=== PATIENT | female | born 1995 | race American Indian/Alaskan Native ===

== ENCOUNTER 2018-07-20 07:30 | Day surgery (SDC) | payer MEDICAID ==
--- NOTE | 2018-07-19 04:04 | History and Physical Report ---
History of Present Illness Date of examination: 07/16/18 Date of admission: 07/20/2018 Chief complaint: sterilization History of present illness: Visit Type: Pre-Op CC: pre op. History of Present Illness: pt presents for Pre op LTL....marion Pt desires btl. All risk/benefits/alternatives were d/w pt and questions were addressed and answered. Consents were signed and placed on the chart. Stressed to pt her age and riks of regret. She expressed understanding stating she has 3 children and is aware of the risk but strongly desires to have procedure done. Methods were d/w pt and she desires to have bilateral salpingectomy. Vital Signs: Patient Profile: 23 Years Old Female Height: 62 inches Weight: 110 pounds BMI: 20.12 BP sittin / 60 (left arm) Current Method of Contraception: None Date of Last Pap Smear: 01/27/2018 Past History : 3 Term Births: 3 Premature Births: 0 Living Children: 3 Para: 2 Mult. Births: 0 Prev : 0 Aborta: 0 Elect. Ab: 0 Spont. Ab: 0 Ectopics: 0 # 1 Delivery date: 2012 Weeks Gestation: 40 weeks labor: no Delivery type: Hours of labor: 12 Anesthesia type: epidural Delivery location: [place] Sex: Female weight: 5#6 # 2 Delivery date: 2016 Weeks Gestation: 40 labor: no Delivery type: Hours of labor: 11 Anesthesia type: epidural Delivery location: [place] Sex: Male weight: 6#5 # 3 Delivery date: 05/30/2018 Weeks Gestation: 39.5 Delivery type: Vaginal Anesthesia type: epidural Delivery location: [facility] Infant Sex: female weight: 7.38 Comments: none QA TEST LEAD History Operations: hernia repair Abnormal PAP: negative Infection History HIV Risk Eval: no Personal hx. of genital herpes: no Partner hx. of genital herpes: no Hx of STD: none Current Allergies (reviewed today): No known allergies Past Medical History: Reviewed history from 02/25/2018 and no changes required: Anemia Past Surgical History: Reviewed history from 02/25/2018 and no changes required: hernia repair [--[facility]] Risk Factors: Smoked Tobacco Use: Never smoker Smokeless Tobacco Use: Never Drug use: no HIV high-risk behavior: no Seatbelt use: 100 % PAP Smear History: Date of Last PAP Smear: 01/27/2018 Past History Past Medical History: other (anemia) Past Surgical History: other (hernia repair) QA TEST LEAD History: denies: abnormal PAP smear - Obstetrical History : 3 Para: 3 Hx # Term Pregnancies: 3 Number of Living Children: 3 Medications and Allergies Allergies Allergy/AdvReac Type Severity Reaction Status Date / Time No Known Allergies Allergy Verified 07/16/18 16:51 Home Medications Medication Instructions Recorded Confirmed Last Taken Type No Known Home Medications [No 07/16/18 07/16/18 Unknown History Reported Home Medications] Review of Systems All systems: negative - Physical Exam Cardiovascular: Normal S1, Normal S2 Lungs: Positive: Clear to auscultation, Normal air movement Abdomen: Positive: normal appearance, soft. Negative: distention, tenderness, guarding Genitourinary (Female): Positive: other (deferred until EUA) Results All other labs normal. Assessment and Plan - Patient Problems (1) Encounter for sterilization Status: Acute Plan to address problem: -all risk, benefits,and alternatives were d/w pt and questions were addressed and answered -consent signed and placed on the chart.
[~2018-07-20 07:30] MED LIST: ANCEF/STERILE WATER 2 GM/20 ML 2 GM/20 ML SYRINGE IV NR
[2018-07-20] MEDS ORDERED: MARCAINE 0.5% INFILTRATI ONE (07:56)
[2018-07-20] MEDS ORDERED: VERSED IV NR (08:28)
[2018-07-20 08:53] LABS: Hematocrit 39.9 % (30.3-42.9); Hemoglobin 13.2 gm/dl (10.1-14.3); Mean Corpuscular HGB Conc 33 % (30-34); Mean Corpuscular Volume 89 fl (79-97); Platelet Count 313 K/mm3 (140-440); Red Blood Count 4.46 M/mm3 (3.65-5.03); Red Cell Distribution Width 14.7 % (13.2-15.2)
[2018-07-20] MEDS ORDERED: LACTATED RINGERS 1,000 ML IV SCH (09:00)
[2018-07-20] MEDS ORDERED: ZEMURON IV ONE (09:12)
[2018-07-20] MEDS ORDERED: DIPRIVAN 10 MG/ML IV ONE (09:12)
[2018-07-20] MEDS ORDERED: DILAUDID ONE (09:12)
[2018-07-20] MEDS ORDERED: XYLOCAINE MPF 2% ONE (09:12)
--- NOTE | 2018-07-20 09:41 | Anesthesia Consultation ---
Anesthesia Consult and Med Hx Date of service: 07/20/18 - Airway Anesthetic Teeth Evaluation: Good ROM Head & Neck: Adequate Mental/Hyoid Distance: Adequate Mallampati Class: Class II Intubation Access Assessment: Probably Good - Pulmonary Exam CTA: Yes - Cardiac Exam Cardiac Exam: RRR - Pre-Operative Health Status ASA Pre-Surgery Classification: ASA2 Proposed Anesthetic Plan: General - Pulmonary Hx Smoking: Yes (< 1 black and mild per day) Hx Asthma: No Hx Respiratory Symptoms: No (no recent cough or flu symptoms) - Cardiovascular System Hx Hypertension: No Hx Heart Attack/AMI: No - Central Nervous System Hx Seizures: No CVA: No - Gastrointestinal Hx Gastroesophageal Reflux Disease: No - Endocrine Hx Renal Disease: No Hx Liver Disease: No Hx Insulin Dependent Diabetes: No Hx Non-Insulin Dependent Diabetes: No Hx Thyroid Disease: No - Other Systems Hx Obesity: No - Additional Comments Anesthesia Medical History Comments: No hx anesthesia complications.
[2018-07-20] MEDS ORDERED: DILAUDID IV PRN (09:42)
--- NOTE | 2018-07-20 09:42 | Anesthesia Day of Surgery ---
Anesthesia Day of Surgery - Day of Surgery Patient Examined: Yes Patient H&P Reviewed: Yes Patient is NPO: Yes
[2018-07-20] MEDS ORDERED: NACL 0.9% IR ONE (10:59)
[2018-07-20] MEDS ORDERED: BLOXIVERZ ONE (11:07)
[2018-07-20] MEDS ORDERED: ROBINUL ONE (11:08)
[2018-07-20] MEDS ORDERED: ZOFRAN ONE (11:10)
[2018-07-20] MEDS ORDERED: TORADOL ONE (11:10)
--- NOTE | 2018-07-20 11:20 | Operative Report ---
Operative Report Operative Report: Date of procedure: 07/20/2018 Pre-operative diagnosis: Desires permanent sterilization Post-operative diagnosis: Same Procedure name(s): Bilateral salpingectomy Surgeon: Dr. Martino Senior Process Analyst: INDY Anesthesia: Gen. endotracheal anesthesia EBL: 50 mL Urine output: 25 mL of clear urine out at the beginning of the procedure via straight catheterization Fluids: 600 mL Findings: Grossly normal fallopian tubes and ovaries bilaterally Normal uterus normal cervix normal vagina Indications: Patient presents for sterilization. All risks benefits and alternatives were discussed with the patient. Consents were signed and placed on the chart. Procedure: Patient was taken to the operating room and which she was placed under general endotracheal anesthesia. Patient was then prepped and draped in sterile fashion and placed in dorsal lithotomy position in Aroldo stirrups. Patient underwent straight catheterization. Attention was then turned to the vagina in which a Humi uterine manipulator was placed after the uterus had been sounded. Attention was then turned to the umbilicus and which an infraumbilical incision was made with the scalpel 5mm trocar was placed using direct visualization with the camera. Abdomen was then insufflated with gas. Under direct visualization a second 8 mm trocar and 5 mm trocar were placed. The left fallopian tube was grasp with the grasper elevated cauterized and transected. Specimen was handed off to be sent to pathology. Excellent hemostasis was noted. This was repeated on the right side. After procedure was completed all instruments were removed from the abdomen under direct visualization. All gas was also released from the abdomen. All instruments were removed from the vagina. The skin was approximated with 4-0 Monocryl in a subcuticular stitch. The patient tolerated procedure well. Sponge, lap, and needle counts were all correct x3 the patient was taken to the recovery room awake and in stable condition.
--- NOTE | 2018-07-20 11:20 | Short Stay Summary ---
Short Stay Documentation Date of service: 07/27/18 - History H&P: dictated - Allergies and Medications Current Medications: Allergies No Known Allergies Allergy (Verified 07/16/18 16:51) Home Medications Medication Instructions Recorded Confirmed Last Taken Type RX: No Known Home Medications [No 07/16/18 07/16/18 Unknown History Reported Home Medications] Active Medications Hydromorphone HCl (Dilaudid) 0.5 mg IV Q10MIN PRN PRN Reason: Pain , Severe (7-10) Stop: 07/20/18 20:00 Cefazolin Sodium (Ancef/Sterile Water 2 Gm/20 Ml) 2 gm in 20 mls @ 80 mls/hr IV PREOP NR; Protocol Stop: 07/20/18 23:45 Lactated Ringer's (Lactated Ringers) 1,000 mls @ 100 mls/hr IV DIRECT MARTA Last Admin: 07/20/18 08:35 Dose: 100 mls/hr Documented by: Midazolam HCl (Versed) 2 mg IV ONCE NR Stop: 07/20/18 12:00 Last Admin: 07/20/18 08:49 Dose: 2 mg Documented by: - Brief post op/procedure progress note Date of procedure: 07/20/18 Pre-op diagnosis: desires permanent sterilization Post-op diagnosis: same Procedure: See operative report Anesthesia: GETA Findings: See operative report Surgeon: ANDRE TINSLEY Estimated blood loss: 50-100ml Pathology: list (portions of left and right tube) Specimen disposition: to lab - Hospital course Hospital course: Patient was admitted for above-stated procedure. Patient underwent procedure that was not complicated. Patient will be discharged home from the PACU where she has met discharge criteria. - Disposition Condition at discharge: Good Disposition: DC-01 TO HOME OR SELFCARE - Discharge Diagnoses (1) Encounter for sterilization Status: Acute Short Stay Discharge Plan Activity: no restrictions Diet: regular Wound: open to air Follow up with: PRIMARY CARE,MD [Primary Care Provider] - 7 Days Prescriptions: Ibuprofen 800 mg PO Q6HR #30 tablet oxyCODONE /ACETAMINOPHEN [Percocet 5/325] 1 tab PO Q4HR PRN #30 tablet PRN Reason: Pain
[2018-07-20] MEDS ORDERED: PERCOCET 5/325 PO PRN (11:34)
[2018-07-20 13:14] VITALS: BP 100/59
--- NOTE | 2018-07-20 13:18 | Post Anesthesia Evaluation ---
- Post Anesthesia Evaluation Patient Participated: Yes Airway Patent: Yes Stable Respiratory Function: Yes Nausea/Vomiting: No Temp > 96.8F: Yes Pain Manageable: Yes Adequeate Hydration: Yes Anesthesia Complications: No
== END 2018-07-20 13:48 | disposition home or self-care (01) ==
LOC: OR 07:30
PROVIDERS: ATTEND Obstetrics & Gynecology
DX: Z30.2 Encounter for sterilization (principal); D64.9 Anemia, unspecified; F17.200 Nicotine dependence, unspecified, uncomplicated; Z79.899 Other long term (current) drug therapy; Z98.890 Other specified postprocedural states; Z80.9 Family history of malignant neoplasm, unspecified
CPT/HCPCS: 36415; 58670; 81025; 85027; 88302; J0690; J1170; J1885; J2250; J2405; J2704; J2710; J7120